=== PATIENT | female | born 1995 | race Caucasian/White ===

== ENCOUNTER 2016-08-31 17:07 | Emergency (ER) | payer OTHER ==
[2016-08-31 17:11] VITALS: BP 118/79; PULSE 79; TEMP 97.9; BMI 31.8
[2016-08-31] MEDS ORDERED: ACETAMINOPHEN 500 MG TABLET (FP) PO ONE (17:56)
[2016-08-31] MEDS ORDERED: ACETAMINOPHEN 500 MG TABLET (FP) ONE (17:58)
[2016-08-31] MEDS ORDERED: PSEUDOEPHEDRINE HCL 30 MG TABLET PO SCH (18:00)
[2016-08-31] MEDS ORDERED: PSEUDOEPHEDRINE HCL 30 MG TABLET PO ONE (18:00)
--- NOTE | 2016-08-31 18:02 | PDOC ---
History of Present Illness - General Chief Complaint: Ear Problem Stated Complaint: EAR PROBLEM Time Seen by Provider: 08/31/16 17:35 History Source: Patient Exam Limitations: No Limitations - History of Present Illness Initial Comments: 08/31/16 17:54 This is a 21 yo woman without PMH who presents with sore throat, subjective fevers, and left ear ache for 3-4 days. She has been taking Dayquil with minimal relief. She used OTC ear gtts which caused more pain. Her boyfriend has been experiencing similar symptoms starting 1 day before the patient started her symptoms. Past History - Past Medical History Allergies/Adverse Reactions: Allergies Allergy/AdvReac Type Severity Reaction Status Date / Time No Known Allergies Allergy Verified 08/31/16 17:10 Home Medications: Ambulatory Orders NK [No Known Home Medication] 08/31/16 - Psycho/Social/Smoking Cessation Hx Suicidal Ideation: No Smoking History: Never smoked Number of Cigarettes Smoked Daily: 1 Information on smoking cessation initiated: No Review of Systems - Review of Systems Able to Perform ROS?: Yes Is the patient limited Polish proficient: No HEENTM: Yes: Ear Pain (left). No: Tearing, Ear Discharge, Nose Congestion Respiratory: Yes: Symptoms reported Cardiac (ROS): No: Symptoms Reported ABD/GI: No: Symptoms Reported : No: Symptoms Reported Musculoskeletal: No: Symptoms Reported Integumentary: No: Symptoms Reported Neurological: No: Symptoms reported *Physical Exam - Vital Signs Last Vital Signs Temp Pulse Resp BP Pulse Ox 97.9 F 79 18 118/79 99 08/31/16 17:10 08/31/16 17:10 08/31/16 17:10 08/31/16 17:10 08/31/16 17:10 - Physical Exam General Appearance: Yes: Appropriately Dressed. No: Apparent Distress HEENT: positive: [place], Normal ENT Inspection, Normal Voice, TM Bulging (left) Neck: positive: Trachea midline, Supple, Other (surgical scar on left anterolateral neck) Respiratory/Chest: positive: Lungs Clear. negative: Respiratory Distress Cardiovascular: positive: Regular Rhythm, Regular Rate, S1, S2. negative: Edema , Murmur Gastrointestinal/Abdominal: positive: Normal Bowel Sounds, Soft. negative: Tender, Organomegaly Musculoskeletal: positive: Normal Inspection. negative: CVA Tenderness Extremity: positive: Normal Capillary Refill, Normal Inspection Integumentary: positive: Normal Color, Dry, Warm Neurologic: positive: deblocker II-XII NML intact, Fully Oriented, Alert Medical Decision Making - Medical Decision Making 08/31/16 17:59 A: This is a 21 yo woman without PMH who presents with sore throat, subjective fevers, and left ear ache for 3-4 days. She has been taking Dayquil with minimal relief. She used OTC ear gtts which caused more pain. Her boyfriend has been experiencing similar symptoms starting 1 day before the patient started her symptoms. No erythema noted in oropharynx. +cobblestoning in oropharynx. Left TM bulging. Centor score-1. Less likely mono given absence of posterior lymphadenopathy. P: - Sudafed - Tylenol - discharge *DC/Admit/Observation/Transfer Diagnosis at time of Disposition: Pharyngitis Qualifiers: Pharyngitis/tonsillitis etiology: unspecified etiology Qualified Code(s): J02.9 - Acute pharyngitis, unspecified - Discharge Dispostion Disposition: HOME Condition at time of disposition: Stable Admit: No - Referrals Referrals: Yeni Carrillo MD [Primary Care Provider] - - Patient Instructions Printed Discharge Instructions: Viral Pharyngitis Additional Instructions: Gargle salt water as needed to soothe throat. Take Motrin as directed by forensic document examiner's instructions. Take Sudafed or phenylephrine as directed by forensic document examiner's instructions. Keep well hydrated. Eat a well balanced diet. Return to ED for difficulty swallowing, difficulty breathing or any other complaints.
== END 2016-08-31 18:19 | disposition home or self-care (01) ==
LOC: JERFT 17:07 → JER 17:07
DX: J02.9 Acute pharyngitis, unspecified (principal)
CPT/HCPCS: 99281-25

== ENCOUNTER 2018-06-17 10:05 | Emergency (ER) | payer OTHER ==
[2018-06-17 10:20] VITALS: BP 119/68; PULSE 74; TEMP 98.2; BMI 35.4
--- NOTE | 2018-06-17 11:21 | PDOC ---
History of Present Illness - General Chief Complaint: Ear Problem Stated Complaint: EARACHE Time Seen by Provider: 06/17/18 11:15 - History of Present Illness Initial Comments: 06/17/18 11:21 22-year-old female assures me there is no chance of presents for evaluation of left ear pain without systemic symptoms 2 days. Past History - Past Medical History Allergies/Adverse Reactions: Allergies Allergy/AdvReac Type Severity Reaction Status Date / Time No Known Allergies Allergy Verified 06/17/18 10:20 Home Medications: Ambulatory Orders Ciprofloxacin HCl/Dexameth [Ciprodex Otic Suspension] 4 drop BID 7 Days #1 bottle 06/17/18 COPD: No - Suicide/Smoking/Psychosocial Hx Smoking History: Current every day smoker Number of Cigarettes Smoked Daily: 5 Information on smoking cessation initiated: No Review of Systems - Review of Systems Constitutional: No: Fever HEENTM: Yes: Ear Pain, Ear Discharge *Physical Exam - Vital Signs Last Vital Signs Temp Pulse Resp BP Pulse Ox 98.2 F 74 16 119/68 99 06/17/18 10:17 06/17/18 10:17 06/17/18 10:17 06/17/18 10:17 06/17/18 10:17 - Physical Exam Comments: 06/17/18 11:20 HEAD: NC/AT EYES: Conjuntiva clear Ears: Right ear canal and tympanic membrane are normal. Left ear canal is erythemic with exudate, swelling and drainage tympanic membrane visualized portion is normal color with light reflex NOSE: No d/c THROAT: Moist mucous membrances, oral pharanx clear, uvula midline NECK: Supple without adenopathy CARDIAC: S1 S2 LUNGS: CTA Full and Equal breath sounds ABDOMEN: Soft NT ND MS: Full ROM in all joints without edema NEUROLOGIC: No gross sensory or motor deficits, NVID SKIN: Normal color and temperature no lesions or rashes Medical Decision Making - Medical Decision Making 06/17/18 11:20 Ciprodex for otitis externa follow-up with ENT Tylenol Motrin for pain was discussed. *DC/Admit/Observation/Transfer Diagnosis at time of Disposition: Otitis externa - Discharge Dispostion Disposition: HOME Condition at time of disposition: Stable Decision to Admit order: No - Prescriptions Prescriptions: Ciprofloxacin HCl/Dexameth [Ciprodex Otic Suspension] 4 drop BID 7 Days #1 bottle - Referrals Referrals: Ravin Ramirez MD [Staff Physician] - - Patient Instructions Printed Discharge Instructions: Otitis Externa, DI for Otitis Externa Additional Instructions: Please use the eardrops as directed. Return to the emergency room for worsening symptoms. Follow-up with ear nose and throat doctor in 1-2 days for further evaluation and treatment options. Tylenol and Motrin as directed for pain. - Post Discharge Activity
== END 2018-06-17 11:24 | disposition home or self-care (01) ==
LOC: JERFT 10:05
DX: H60.502 Unspecified acute noninfective otitis externa, left ear (principal)
CPT/HCPCS: 99281-25

== ENCOUNTER 2018-06-18 09:05 | Emergency (ER) | payer OTHER ==
[2018-06-18 09:16] VITALS: BP 143/84; PULSE 90; TEMP 98.1; BMI 35.4
--- NOTE | 2018-06-18 09:35 | PDOC ---
History of Present Illness - General Chief Complaint: Ear Problem Stated Complaint: LT EAR PAIN / REVISIT Time Seen by Provider: 06/18/18 09:21 History Source: Patient Exam Limitations: No Limitations Past History - Travel Traveled outside of the country in the last 30 days: No Close contact w/someone who was outside of country & ill: No - Past Medical History Allergies/Adverse Reactions: Allergies Allergy/AdvReac Type Severity Reaction Status Date / Time No Known Allergies Allergy Verified 06/18/18 09:13 Home Medications: Ambulatory Orders Ciprofloxacin HCl/Dexameth [Ciprodex Otic Suspension] 4 drop BID 7 Days #1 bottle 06/17/18 COPD: No - Immunization History Immunization Up to Date: Yes - Suicide/Smoking/Psychosocial Hx Smoking History: Never smoked Number of Cigarettes Smoked Daily: 5 Hx Alcohol Use: No Drug/Substance Use Hx: No Review of Systems - Review of Systems Able to Perform ROS?: Yes Comments:: 06/18/18 09:34 CONSTITUTIONAL: Absent: fever, chills, diaphoresis, generalized weakness, malaise, loss of appetite HEENT: Present: L ear pain Absent: rhinorrhea, nasal congestion, throat pain, throat swelling, difficulty swallowing, mouth swelling, eye pain, visual Changes MUSCULOSKELETAL: Absent: myalgia, arthralgia, joint swelling SKIN: Absent: rash, itching, pallor NEUROLOGIC: Absent: headache, focal weakness or paresthesias, dizziness, unsteady gait, seizure, mental status changes, bladder or bowel incontinence Is the patient limited Moldovan proficient: No *Physical Exam - Vital Signs Last Vital Signs Temp Pulse Resp BP Pulse Ox 98.1 F 90 18 143/84 98 06/18/18 09:13 06/18/18 09:13 06/18/18 09:13 06/18/18 09:13 06/18/18 09:13 - Physical Exam Comments: 06/18/18 09:35 GENERAL: The patient is awake, alert, and fully oriented, in no acute distress. HEAD: Normal with no signs of trauma. EYES: Pupils equal, round and reactive to light, extraocular movements intact, sclera anicteric, conjunctiva clear. EARS: L ear with purulent drainage, otterhea, swollen ear canal. Unable to visualize L TM d/t ottorhea. R TM is clear, pearly sanchez in color with good cone of light. Clear R ear canal EXTREMITIES: Normal range of motion, no edema. NEUROLOGICAL: Normal speech, normal gait. PSYCH: Normal mood, normal affect. SKIN: Warm, Dry, normal turgor, no rashes or lesions noted. Medical Decision Making - Medical Decision Making 06/18/18 09:45 The patient is a 22-year-old female with no past medical history who presents to the ER for left ear pain. She was evaluated in our ER for same symptoms. She was diagnosed with left otitis externa and started on Ciprodex. She states she started using the drops however she noticed her pain got worse last night despite the antibiotic drops and Tylenol. She admits to decreased hearing out of the left ear. Denies fevers, chills, sore throat, visual changes, shortness of breath. A/P P: Acute otitis externa of the left ear On exam L ear is very swollen with significant otorrhea. Unable to visualize the left TM at this time. Given increased pain despite treatment will start the patient on oral antibiotics. Ear wick placed in the ER for comfort. Explained to patient that she needs to follow-up with ENT this week so they can evaluate the ear Discharge home I discussed the physical exam findings, ancillary test results and final diagnoses with the patient. I answered all of the patient's questions. The patient was satisfied with the care received and felt comfortable with the discharge plan and treatment plan. The Patient agrees to follow up with the primary care physician/specialist within 24-72 hours. Return precautions were given. *DC/Admit/Observation/Transfer Diagnosis at time of Disposition: Otitis externa Qualifiers: Otitis externa type: unspecified type Chronicity: acute Laterality: left Qualified Code(s): H60.502 - Unspecified acute noninfective otitis externa, left ear - Discharge Dispostion Disposition: HOME Condition at time of disposition: Stable Decision to Admit order: No - Referrals Referrals: Robson Arora MD [Staff Physician] - - Patient Instructions Printed Discharge Instructions: DI for Otitis Externa Additional Instructions: You were evaluated for you ear pain today. You have otitis externa, an infection of the ear canal Please continue the drops that were previously prescribed Start taking amoxicillin 500mg twice a day for 10 days Keep the ear dry. Do not put anything in the ear Follow up with ENT this week. A referral has been provided to you Return to the ER For worsening pain, fevers, headaches, or if you have any changes in your symptoms - Post Discharge Activity
[2018-06-18] MEDS ORDERED: NEOMYCIN/POLYMYXN/HC OTIC SOLUTION 10 ML BOTTLE AS ONE (09:44)
[2018-06-18] MEDS ORDERED: NEOMYCIN/POLYMYXN/HC OTIC SOLUTION 10 ML BOTTLE ONE (09:45)
[2018-06-18] MEDS ORDERED: KETOROLAC TROMETHAMINE 60 MG/2 ML VIAL IM ONE (09:50)
== END 2018-06-18 10:02 | disposition home or self-care (01) ==
LOC: JERFT 09:05
PROC: 3E0333Z Introduction of Anti-inflammatory into Peripheral Vein, Percutaneous Approach (ICD-10-PCS; principal; 2018-06-18)
DX: R05 Cough (principal); H60.502 Unspecified acute noninfective otitis externa, left ear
CPT/HCPCS: 96374; 99281-25